=== PATIENT | female | born 1975 | race Caucasian/White ===

== ENCOUNTER 2016-07-19 10:12 | Inpatient (IN) | payer OTHER ==
[~2016-07-19] VITALS: Ht 170.2 cm; Wt 105.0 kg
[~2016-07-19 10:12] MED LIST: ALPRAZOLAM1 MG PO; Advair HFA 115/21 IH; BACTRIM,SEPT1 TABLET PO; EPZICOM1 TABLET PO; Effexor PO; Epzicom PO; HIV MEDS; Levaquin PO; MECLIZINE HCL25 MG PO; NORVIR; NORVIR100 M1 PO; NORVIR100 MG PO; Norvir PO; OXYCODONE HCL15 MG PO; OXYCODONE15 MG PO; Proventil,Ventolin H IH; REYATAZ; REYATAZ150 MG PO; REYATAZ200 MG PO; RIFAMPIN300 MG PO; VALIUM5 MG PO; Vantin PO; ZOFRAN4 MG PO; Zithromax PO; predniSONE PO
[2016-07-19] MEDS ORDERED: METHADONE 22 MG/1 ML PO (11:53)
[2016-07-19] MEDS ORDERED: XANAX1 MG PO (11:54)
[2016-07-19 12:32] LABS: HEMATOCRIT 50.2 % (36.0-46.0); MCH 31.5 PG (29.0-34.0); MCHC 32.1 G/DL (30.0-36.0); MCV 98.2 FL (83-99); MEAN PLAT.VOLUME 9.6 uM^3 (9.5-12.4); PLATELET COUNT 160 K/uL (156-360); RBC DIS.WIDTH-CV 13.2 % (11.8-14.6); RBC DIS.WIDTH-SD 47.2 % (39-53); RED BLOOD COUNT 5.11 M/uL (3.80-5.20); WHITE BLOOD COUNT 5.6 K/uL (4.1-10.2)
[2016-07-19 12:42] LABS: CHLORIDE 103 mEq/L (99-109); POTASSIUM 4.4 mEq/L (3.7-5.4); SODIUM 140 mEq/L (136-147)
[2016-07-19 12:44] LABS: GLUCOSE 98 mg/dL (70-99)
[2016-07-19 12:45] LABS: ANION GAP 9 MEQ/L (2-14)
[2016-07-19 12:47] LABS: GFR ESTIMATE (CALCULATED) > 59 mL/min/
[2016-07-19 12:48] LABS: UREA NITROGEN (BUN) 20 mg/dL (9-23)
[2016-07-19 12:49] LABS: D-DIMER ELISA 0.46 mg/L FEU (< 0.57)
[2016-07-19 13:38] LABS: TROP-I INTERPRETATION NEGATIVE; TROPONIN-I < 0.01 ng/mL (0.0-0.30)
[2016-07-19 14:20] LABS: INFLUENZA A VIRAL ANTIGEN NEGATIVE; INFLUENZA B VIRAL ANTIGEN NEGATIVE
[2016-07-19 16:03] VITALS: BP 140/74
[2016-07-19 19:20] VITALS: BP 100/59
[2016-07-19 20:09] LABS: TROP-I INTERPRETATION NEGATIVE; TROPONIN-I < 0.01 ng/mL (0.0-0.30)
[2016-07-19 23:50] VITALS: BP 108/66
[2016-07-20 02:06] LABS: TROP-I INTERPRETATION NEGATIVE; TROPONIN-I < 0.01 ng/mL (0.0-0.30)
[2016-07-20 04:30] VITALS: BP 97/65
[2016-07-20 06:01] LABS: HEMATOCRIT 48.2 % (36.0-46.0); MCH 31.4 PG (29.0-34.0); MCHC 31.7 G/DL (30.0-36.0); MCV 98.8 FL (83-99); MEAN PLAT.VOLUME 10.2 uM^3 (9.5-12.4); PLATELET COUNT 156 K/uL (156-360); RBC DIS.WIDTH-SD 46.9 % (39-53); RED BLOOD COUNT 4.88 M/uL (3.80-5.20); WHITE BLOOD COUNT 4.5 K/uL (4.1-10.2)
[2016-07-20 08:01] VITALS: BP 97/59
[2016-07-20 17:15] VITALS: BP 109/69
[2016-07-20 20:09] VITALS: BP 131/72
[2016-07-21] VITALS: BP 100/47
[2016-07-21 04:00] VITALS: BP 101/54
[2016-07-21 05:13] LABS: MCH 31.4 PG (29.0-34.0); MCHC 31.8 G/DL (30.0-36.0); MCV 98.7 FL (83-99); MEAN PLAT.VOLUME 9.7 uM^3 (9.5-12.4); PLATELET COUNT 162 K/uL (156-360); RBC DIS.WIDTH-CV 12.8 % (11.8-14.6); RBC DIS.WIDTH-SD 46.7 % (39-53); RED BLOOD COUNT 4.56 M/uL (3.80-5.20)
[2016-07-21 05:26] LABS: WHITE BLOOD COUNT 10.2 K/uL (4.1-10.2)
[2016-07-21 05:42] LABS: ANION GAP 8 MEQ/L (2-14); CHLORIDE 102 MEQ/L (99-109); GFR ESTIMATE (CALCULATED) > 59 mL/min/; SAMPLE HEMOLYSIS CHECK 0; SAMPLE ICTERIC CHECK 0; SAMPLE LIPEMIA CHECK 0; SODIUM 136 MEQ/L (136-147); UREA NITROGEN (BUN) 17 mg/dL (9-23)
[2016-07-21 05:44] LABS: GLUCOSE 182 mg/dL (70-99)
[2016-07-21 08:26] VITALS: BP 119/62
[2016-07-21 15:34] VITALS: BP 113/73
[2016-07-21 20:00] VITALS: BP 118/63
[2016-07-22] VITALS: BP 135/62
[2016-07-22 07:41] LABS: HEMATOCRIT 45.4 % (36.0-46.0); MCH 31.3 PG (29.0-34.0); MCHC 31.3 G/DL (30.0-36.0); MCV 100.2 FL (83-99); MEAN PLAT.VOLUME 9.9 uM^3 (9.5-12.4); PLATELET COUNT 173 K/uL (156-360); RED BLOOD COUNT 4.53 M/uL (3.80-5.20)
[2016-07-22 07:45] VITALS: BP 120/71
[2016-07-22 07:49] LABS: ANION GAP 5 MEQ/L (2-14); CHLORIDE 103 MEQ/L (99-109); GFR ESTIMATE (CALCULATED) > 59 mL/min/; GLUCOSE 204 mg/dL (70-99); POTASSIUM 4.6 MEQ/L (3.7-5.4); SAMPLE HEMOLYSIS CHECK 0; SAMPLE ICTERIC CHECK 0; SAMPLE LIPEMIA CHECK 0; SODIUM 138 MEQ/L (136-147); UREA NITROGEN (BUN) 23 mg/dL (9-23)
[2016-07-22 08:19] LABS: WHITE BLOOD COUNT 13.8 K/uL (4.1-10.2)
[2016-07-22 08:42] LABS: Estimated Average Glucose 123 mg/dL (70-123); HEMOGLOBIN A1c (GLYCOHEMOGLOB) 5.9 % HGB (Below 5.7)
[2016-07-22 11:25] VITALS: BP 117/80
[2016-07-22 12:54] LABS: POINT-OF-CARE METER ID UU13113807
[2016-07-22 15:23] VITALS: BP 128/83
[2016-07-22 16:55] LABS: POINT-OF-CARE METER ID UU13113807
[2016-07-22 20:01] VITALS: BP 127/66
[2016-07-22 21:27] LABS: POINT-OF-CARE METER ID UU13113807
[2016-07-22 23:27] VITALS: BP 132/64
[2016-07-23 03:25] VITALS: BP 132/79
[2016-07-23 06:09] LABS: HEMATOCRIT 42.3 % (36.0-46.0); MCH 31.6 PG (29.0-34.0); MCHC 31.4 G/DL (30.0-36.0); MCV 100.5 FL (83-99); PLATELET COUNT 145 K/uL (156-360); RBC DIS.WIDTH-CV 13.2 % (11.8-14.6); RBC DIS.WIDTH-SD 49.3 % (39-53); RED BLOOD COUNT 4.21 M/uL (3.80-5.20); WHITE BLOOD COUNT 10.3 K/uL (4.1-10.2)
[2016-07-23 06:31] LABS: ANION GAP 6 MEQ/L (2-14); CHLORIDE 100 MEQ/L (99-109); GFR ESTIMATE (CALCULATED) > 59 mL/min/; GLUCOSE 198 mg/dL (70-99); POTASSIUM 4.4 MEQ/L (3.7-5.4); SAMPLE HEMOLYSIS CHECK 0; SAMPLE ICTERIC CHECK 0; SAMPLE LIPEMIA CHECK 0; SODIUM 137 MEQ/L (136-147); UREA NITROGEN (BUN) 23 mg/dL (9-23)
[2016-07-23 07:36] VITALS: BP 134/78
[2016-07-23 08:45] LABS: POINT-OF-CARE METER ID UU14149396
[2016-07-23 11:40] VITALS: BP 108/58
[2016-07-23 11:50] LABS: POINT-OF-CARE METER ID UU14149396
[2016-07-23 15:37] VITALS: BP 121/62
[2016-07-23 16:45] LABS: POINT-OF-CARE METER ID UU14149396
[2016-07-23 19:22] VITALS: BP 138/82
[2016-07-23 21:31] LABS: POINT-OF-CARE METER ID UU14149396
[2016-07-23 22:53] VITALS: BP 160/72
[2016-07-24 04:03] VITALS: BP 157/74
[2016-07-24 08:02] VITALS: BP 170/86
[2016-07-24 08:15] LABS: POINT-OF-CARE METER ID UU14149398; POINT-OF-CARE USER ID 606021404
[2016-07-24 09:54] LABS: HIV RNA QUANT LOG10 RESULT < 1.30 Log(10) (<1.30); HIV RNA QUANT VIRAL LOAD < 20 copy/mL (<20)
[2016-07-24 11:32] VITALS: BP 126/69
[2016-07-24 11:44] LABS: POINT-OF-CARE METER ID UU14149398; POINT-OF-CARE USER ID 606021404
[2016-07-24 16:47] VITALS: BP 125/72
[2016-07-24 17:09] LABS: POINT-OF-CARE METER ID UU14149398
[2016-07-25 00:12] VITALS: BP 144/75
[2016-07-25 03:33] VITALS: BP 131/76
[2016-07-25 07:58] VITALS: BP 158/81
[2016-07-25 11:46] VITALS: BP 142/85
[2016-07-25 15:13] VITALS: BP 140/86
[2016-07-25 20:07] VITALS: BP 138/69
[2016-07-25 22:47] LABS: POINT-OF-CARE USER ID BHSKTD
[2016-07-26 00:04] VITALS: BP 147/72
[2016-07-26 04:32] VITALS: BP 159/85
[2016-07-26 07:53] LABS: POINT-OF-CARE METER ID UU14188625
[2016-07-26 08:22] VITALS: BP 135/86
[2016-07-26 08:45] VITALS: BP 107/74
[2016-07-26 11:29] VITALS: BP 127/65
[2016-07-26] MEDS ORDERED: XANAX1 MG PO (12:20)
[2016-07-26] MEDS ORDERED: ADVAIR HFA120 INHALA IH (12:20)
[2016-07-26] MEDS ORDERED: NICOTINE PATCH1 EAC1 TD (12:20)
[2016-07-26] MEDS ORDERED: BENZONATATE100 MG PO (12:20)
[2016-07-26] MEDS ORDERED: PREDNISONE10 MG PO (12:20)
== END 2016-07-26 16:38 | disposition home health service (06) | DRG 189 ==
LOC: EME 10:12 → EDOF 14:59 → 4SOUTH 14:59 → 5SOUTH 07-24 18:12
PROVIDERS: Hospitalist; Internal Medicine Infectious Disease; Nurse Practitioner Adult Health; Nurse Practitioner Family; Student in an Organized Health Care Education/Training Program
DX: J96.01 Acute respiratory failure with hypoxia (principal); B20 Human immunodeficiency virus [HIV] disease; J44.1 Chronic obstructive pulmonary disease with (acute) exacerbation; F11.20 Opioid dependence, uncomplicated; J20.9 Acute bronchitis, unspecified; E11.9 Type 2 diabetes mellitus without complications; I95.9 Hypotension, unspecified; R07.89 Other chest pain; F41.9 Anxiety disorder, unspecified; F32.9 Major depressive disorder, single episode, unspecified; F17.210 Nicotine dependence, cigarettes, uncomplicated; M54.5 Low back pain; E66.9 Obesity, unspecified; Z68.36 Body mass index [BMI] 36.0-36.9, adult
CPT/HCPCS: 71010; 71020; 71275; 80048; 82948; 83036; 84484; 85027; 85379; 86355 90; 86359 90; 86360 90; 87070; 87205; 87502; 87536; 93005; 94640; 94640 76; 94760; 94799; 99202; 99281; 99285; G0008; J1650; J1815; J2405; J2920; J7512